=== PATIENT | male | born 1995 | race Caucasian/White ===

== ENCOUNTER 2017-06-21 21:13 | Emergency (ER) | payer BC ==
--- NOTE | 2017-06-21 22:00 | ED Physician Chart ---
ED Chief Complaint/HPI - Patient Information Date Seen:: 06/21/17 Time Seen:: 22:00 Chief Complaint:: CHEST PAIN History of Present Illness:: PATIENT REPORTS CHEST PAIN SEVERAL DAYS DURATION, ANTERIOR CHEST WALL WARMNESS WITHOUT SUBSTERNAL OR NECK CRUSHING SENSATION. PATIENT WENT TO PMD AND WAS TOLD HE NEEDED TO HAVE LABWORK DONE. PATIENT CONTINUES TO BE CONCERNED ABOUT WARM CHEST SENSATION. Historian:: Patient Review:: Nurse's Note Reviewed (warm sensation chest intermittant seen md today told needs lab no risk factors) ED Review of Systems - Review of Systems General/Constitutional: No fever Skin: No skin lesions Head: No headache Eyes: No loss of vision ENT: No earache Neck: No neck pain Cardio Vascular: No chest pain Pulmonary: No SOB GI: No nausea G/U: No dysuria Musculoskeletal: No bone or joint pain Endocrine: No polyuria Psychiatric: No prior psych history Hematopoietic: No bruising Allergic/Immuno: No urticaria Neurological: No syncope ED Past Medical History - Past Medical History Obtainable: Yes (no prior ihd low risk factors) Family History: None Family Medical History - Family Member Mother History Unknown: Yes ED Physical Exam - Physical Examination General/Constitutional: Well-developed, well-nourished, No distress, Non-toxic appearing Head: Atraumatic Eyes: Lids, conjuctiva normal Skin: No rash ENMT: External ears, nose nl Neck: Nontender Respiratory: Nl effort/Exclusion Cardio Vascular: RRR, No murmur, gallop, rubs, NL S1 S2 GI: No tenderness/rebounding/guarding : No CVA tenderness Extremities: No tenderness or effusion Neuro/Psych: Alert/oriented, DTR's symmetric Misc: Normal back (nad) ED Labs/Radiology/EKG Results - Lab Results Results: ekg and cxr neg ED Assessment - Assessment General Assessment: NO SIGNS OF IHD OR PERICARDIAL EFFUSION. ED Septic Shock - . Is Septic Shock (SBP<90, OR Lactate>4 mmol\L) present?: No ED Reassessment (Disposition) - Reassessment Reassessment Condition:: Unchanged - Aftercare/Follow up Instructions Aftercare/Follow-Up Instructions:: Refer to Discharge Instructions - Patient Disposition Discharge/Transfer:: Home Transport Method:: Private ED Discharge Plan - Patient Disposition Admit/Discharge/Transfer: PT DISCHARGED HOME Condition at Disposition: Improved Instructions: Chest Pain Observation
--- NOTE | 2017-06-22 09:32 | Diagnostic Imaging Report ---
CHEST X-RAY: AP view INDICATION: pain COMPARISON: None FINDINGS: There is no focal consolidation or pleural effusions The heart is normal in size. The osseous structures demonstrate no acute abnormalities. IMPRESSION: No acute cardiopulmonary disease.
== END 2017-06-21 23:25 | disposition home or self-care (01) ==
LOC: ER 21:13
DX: R07.9 Chest pain, unspecified (principal)
CPT/HCPCS: 71010-TC; Z7502